=== PATIENT | female | born 1960 | race Caucasian/White ===

== ENCOUNTER 2017-02-03 06:25 | Day surgery (SDC) | payer OTHER, BC ==
[~2017-02-03] VITALS: Ht 162.6 cm; Wt 88.0 kg
[~2017-02-03 06:25] MED LIST: ACIPHEX20 MG PO; ALLEGRA ALLERG180 MG PO; AMBIEN10 MG PO; KLONOPIN0.5 M1 PO; LO-DOSE ASPIRIN81 M2 PO; NEURONTIN800 MG PO; PROAIR HFA8.5 GM IH; ULTRAM50 MG PO; VALIUM5 MG PO; VITAMIN D2000 UNIT PO; ZANAFLEX4 M1 PO; ZANTAC150 MG PO; ZOCOR40 MG PO; ZOLOFT100 MG PO
[2017-02-03] MEDS ORDERED: VITAMIN B122500 MCG PO (07:08)
[2017-02-03 07:10] VITALS: BP 109/69
[2017-02-03 12:24] VITALS: BP 113/74
[2017-02-03 13:45] VITALS: BP 124/59
== END 2017-02-03 14:02 | disposition home or self-care (01) ==
LOC: SDC 06:25
PROC: 0SB20ZZ Excision of Lumbar Vertebral Disc, Open Approach (ICD-10-PCS; principal; 2017-02-03)
PROC: 01NB0ZZ Release Lumbar Nerve, Open Approach (ICD-10-PCS; principal; 2017-02-03)
DX: M51.16 Intervertebral disc disorders with radiculopathy, lumbar region (principal); F41.9 Anxiety disorder, unspecified; J44.9 Chronic obstructive pulmonary disease, unspecified; K21.9 Gastro-esophageal reflux disease without esophagitis; M96.1 Postlaminectomy syndrome, not elsewhere classified; J45.909 Unspecified asthma, uncomplicated; Z82.49 Family history of ischemic heart disease and other diseases of the circulatory system; F17.210 Nicotine dependence, cigarettes, uncomplicated; Z88.0 Allergy status to penicillin; Z79.82 Long term (current) use of aspirin; Z79.899 Other long term (current) drug therapy
CPT/HCPCS: 72020; 76000; J0330; J1100; J1170; J1885; J2405; J2710; J3010